=== PATIENT | male | born 1960 | race Caucasian/White ===

== ENCOUNTER → 2022-01-27 | Day surgery (SDC) | payer BC ==
[~2022-01-27] MED LIST: ASPI-630 PO; BUME2TAB3 PO; FLUT1BLS15 IH; LISI5TAB15 PO; POTA-112 PO; ROSUVASTATIN CA20 MG PO; SPIR25TA5 PO
[2022-01-27 11:25] VITALS: BP 147/82
== END | disposition home or self-care (01) ==
LOC: SURG 10:33
PROVIDERS: ATTEND Anesthesiology
DX: M54.16 Radiculopathy, lumbar region (principal); I10 Essential (primary) hypertension; E11.9 Type 2 diabetes mellitus without complications; G47.33 Obstructive sleep apnea (adult) (pediatric); J44.9 Chronic obstructive pulmonary disease, unspecified; Z98.890 Other specified postprocedural states; Z79.899 Other long term (current) drug therapy; Z88.8 Allergy status to other drugs, medicaments and biological substances; Z72.89 Other problems related to lifestyle
CPT/HCPCS: 99204; G0463

== ENCOUNTER → 2022-03-16 | Day surgery (SDC) | payer BC ==
[~2022-03-16] MED LIST changes: +BUPIVACAINE MPF 0.25% 10 ML VIAL. ONE; +DEXAMETHASONE SOD PHOS 10 MG/ML VIAL. ONE; +IOHEXOL 300 MG/ML 50 ML VIAL. ONE; +LIDOCAINE 1% PF 30 ML VIAL. ONE
[2022-03-16 11:30] VITALS: BP 151/94
== END | disposition home or self-care (01) ==
LOC: SURG 10:55
PROVIDERS: ATTEND Anesthesiology
DX: M54.16 Radiculopathy, lumbar region (principal); M48.061 Spinal stenosis, lumbar region without neurogenic claudication; I10 Essential (primary) hypertension; E11.9 Type 2 diabetes mellitus without complications; J44.9 Chronic obstructive pulmonary disease, unspecified; G47.33 Obstructive sleep apnea (adult) (pediatric); Z88.8 Allergy status to other drugs, medicaments and biological substances; Z98.890 Other specified postprocedural states; Z72.89 Other problems related to lifestyle; Z71.82 Exercise counseling
CPT/HCPCS: 64483; 64484; A4209; A4657; A4930; J1100; J3490; Q9967

== ENCOUNTER → 2022-03-30 | Day surgery (SDC) | payer BC ==
[~2022-03-30] MED LIST changes: -BUPIVACAINE MPF 0.25% 10 ML VIAL. ONE; -DEXAMETHASONE SOD PHOS 10 MG/ML VIAL. ONE; -IOHEXOL 300 MG/ML 50 ML VIAL. ONE; -LIDOCAINE 1% PF 30 ML VIAL. ONE
[2022-03-30 12:50] VITALS: BP 162/75
== END | disposition home or self-care (01) ==
LOC: SURG 12:15
PROVIDERS: ATTEND Anesthesiology
DX: M54.2 Cervicalgia (principal); I10 Essential (primary) hypertension; E11.9 Type 2 diabetes mellitus without complications; J44.9 Chronic obstructive pulmonary disease, unspecified; G47.33 Obstructive sleep apnea (adult) (pediatric); M48.061 Spinal stenosis, lumbar region without neurogenic claudication; Z88.8 Allergy status to other drugs, medicaments and biological substances; Z79.899 Other long term (current) drug therapy; Z79.82 Long term (current) use of aspirin
CPT/HCPCS: 99214; G0463